=== PATIENT | female | born 1990 | race Hispanic/Latino ===

== ENCOUNTER 2023-04-18 07:20 | Inpatient (IN) | payer OTHER ==
[~2023-04-18] VITALS: Ht 165.1 cm; Wt 121.6 kg
[2023-04-18 07:41] LABS: HEMOGLOBIN 14.2 g/dL (12.0-18.0); MCH 31.5 (27-36); MCV 95.4 fl (81-99); RBC 4.51 M/ul (4.3-5.7); RDW 14.9 (10.5-15.0)
[2023-04-18 07:51] LABS: ALBUMIN 2.7 g/dL (3.4-5.0); ALBUMIN/GLOBULIN RATIO 0.66 (1.1-2.4); ANION GAP 17.7 (7-21); BILIRUBIN, TOTAL 0.3 ng/dL (0.2-1.0); BUN/CREATININE RATIO 16.98 (6.0-28.6); CALCIUM 9.2 mg/dL (8.5-10.1); CREATININE, SERUM 0.53 mg/dL (0.55-1.02); POTASSIUM 3.7 mmol/L (3.5-5.1); PROTEIN, TOTAL 6.8 g/dL (6.4-8.2)
[2023-04-18 08:21] LABS: CREATININE, RANDOM URINE 165.46 mg/dL (NOT ESTABLISHED); PROTEIN/CREATININE RATIO 0.19 mg/mg (0.010-0.107)
[2023-04-18 08:44] VITALS: BP 142/81
[2023-04-18 09:01] LABS: AMPHETAMINES, UR NEGATIVE (NEGATIVE); BARBITURATES, UR NEGATIVE (NEGATIVE); BENZODIAZEPINES, UR NEGATIVE (NEGATIVE); BUPRENORPHINE,UR NEGATIVE (NEGATIVE); COCAINE, UR NEGATIVE (NEGATIVE); MARIJUANA (THC), UR NEGATIVE (NEGATIVE); MDMA, UR NEGATIVE (NEGATIVE); METHADONE, UR NEGATIVE (NEGATIVE); METHAMPHETAMINE, UR NEGATIVE (NEGATIVE); OPIATES, UR NEGATIVE (NEGATIVE); OXYCODONE, UR NEGATIVE (NEGATIVE); PHENCYCLIDINE, UR NEGATIVE (NEGATIVE); TRICYCLIC ANTIDEPRESSANT, UR NEGATIVE (NEGATIVE)
[2023-04-18 10:25] LABS: ABO O; ANTIBODY SCREEN NEGATIVE; RH POSITIVE
[2023-04-18 11:27] LABS: INFLUENZA B NAA NEGATIVE (NEGATIVE); RESPIRATORY SYNCYTIAL VIR NAA NEGATIVE (NEGATIVE)
--- NOTE | 2023-04-18 18:20 | PR ---
[facility] [address] [place], [place] [address] Signed Progress Notes IP Datetime Report Generated by CPN: 04/18/2023 18:20 PROGRESS NOTES: [id number] Impression: Normal Progression of Labor; Reassuring Heart Rate Procedures: Artificial ROM Plan: Continue Present Management Informed Consent Obtain: Vaginal Delivery; Risks, Benefits and Alternatives Discussed VITAL SIGNS: [id number] Vital Signs: Reviewed; Within Normal Limits VS Notable Details: See HPI EXAM: [id number] Dilatation: 3.0 Effacement: 50 Station: -2 Contractions: Irregular MEMBRANES: [id number] Comments: Pt seen and examined. Doing well. No sustained severe range bp. No BORREGO, RUQ pain, or visual changes. Discussed AROM; vertex well applied. AROM easily performed for moderate amount of clear fluid. Mother and baby tolerated well. Discussed anticipated course of labor and delivery. All questions answered FETUS A: [id number] FHR Baseline: 125 Variability: Moderate 6-25bpm Accelerations: 15X15 Decelerations: None FHR Category: Category I Presentation: Vertex Comments on Fetus A: No evidence of metabolic acidosis FETUS B: [id number] Signing Physician: Chula Garcia DO Copies: ~ *Electronically Signed* 04/18/23 660 CHULA GARCIA (SAMEER) DO PATIENT NAME: NANCIE HILL PROGRESS NOTE DATE OF : 89 PHYSICIAN: CHULA GARCIA (JD) DO RPT #: [id number] REPORT IS CONFIDENTIAL AND NOT TO BE RELEASED WITHOUT AUTHORIZATION
--- NOTE | 2023-04-18 22:26 | PR ---
[facility] [facility] [address] [place], [place] [address] Signed Progress Notes IP Datetime Report Generated by CPN: 04/18/2023 22:26 PROGRESS NOTES: [id number] Impression: Normal Progression of Labor; Reassuring Heart Rate Procedures: Sterile Vag Exam Other Procedures: Per RN Plan: Continue Present Management Informed Consent Obtain: Vaginal Delivery; Risks, Benefits and Alternatives Discussed VITAL SIGNS: [id number] Vital Signs: Reviewed; Within Normal Limits VS Notable Details: See HPI EXAM: [id number] Dilatation: 4.0 Effacement: 50 Station: -3 Contractions: Irregular MEMBRANES: [id number] Comments: Pt evaluated. RN performed exam to limit staffing COVID exposure. Noted cervical change and reassuring FHT. No sustained elevated BPs. Continue present management. Consder IUPC if needed. Consider epidural if pt desires as labor progesses. FETUS A: [id number] FHR Baseline: 125 Variability: Moderate 6-25bpm Accelerations: 15X15 Decelerations: None FHR Category: Category I Presentation: Vertex Comments on Fetus A: No evidence of metabolic acidosis FETUS B: [id number] Signing Physician: Chula Garcia DO Copies: ~ *Electronically Signed* 04/18/23 222 CHULA GARCIA (SAMEER) DO PATIENT NAME: NANCIE HILL PROGRESS NOTE DATE OF : 92 PHYSICIAN: CHULA GARCIA (JD) DO RPT #: [id number] REPORT IS CONFIDENTIAL AND NOT TO BE RELEASED WITHOUT AUTHORIZATION
--- NOTE | 2023-04-19 07:43 | PR ---
[facility] [address] [place], [place] [address] Signed Progress Notes IP Datetime Report Generated by CPN: 04/19/2023 07:43 PROGRESS NOTES: [id number] Impression: Normal Progression of Labor; Reassuring Heart Rate Procedures: Intrauterine Pressure Catheter; Scalp Electrode; Sterile Vag Exam Other Procedures: Per RN Plan: Augmentation Informed Consent Obtain: Vaginal Delivery VITAL SIGNS: [id number] Vital Signs: Reviewed; Within Normal Limits VS Notable Details: See HPI EXAM: [id number] Dilatation: 5.0 Effacement: 90 Station: -2 Contractions: Irregular MEMBRANES: [id number] Comments: Pt seen and examined. Slow cervical change. Reviewed 3P's of labor and discussed optimization of passage, passenger, and galindo. IUPC and FSE placed w/out difficulty. Will monitor contractions and augment w/ pitocin per protocol as indicated. Discussed anticipated course of labor and indications for if needed. Epidural on demand if desired. FETUS A: [id number] FHR Baseline: 125 Variability: Moderate 6-25bpm Accelerations: 15X15 Decelerations: None FHR Category: Category I Presentation: Vertex Comments on Fetus A: No evidence of metabolic acidosis FETUS B: [id number] Signing Physician: Chula Palencia DO Copies: ~ *Electronically Signed* 04/19/23 0743 CHULA PALENCIA (SAMEER) DO PATIENT NAME: KANE OTOOLERONALDOPRIMITIVOHANK PROGRESS NOTE DATE OF : 92 PHYSICIAN: CHULA PALENCIA) DO RPT #: [id number] REPORT IS CONFIDENTIAL AND NOT TO BE RELEASED WITHOUT AUTHORIZATION
--- NOTE | 2023-04-19 12:09 | PR ---
[facility] [address] [place], [place] [address] Signed Progress Notes IP Datetime Report Generated by CPN: 04/19/2023 12:09 PROGRESS NOTES: [id number] Impression: Normal Progression of Labor; Reassuring Heart Rate Procedures: Sterile Vag Exam Other Procedures: Per RN Plan: Continue Present Management; Anticipate Vaginal Delivery Informed Consent Obtain: Vaginal Delivery Other Informed Consents: Mag Sulfate / IV labetalol VITAL SIGNS: [id number] Vital Signs: Reviewed; Within Normal Limits VS Notable Details: See HPI EXAM: [id number] Dilatation: 9.5 Effacement: 100 Station: -1 Contractions: Irregular MEMBRANES: [id number] Comments: Pt seen and examined. Reviewed elevated BP but have since improved. Pt w/ severe anxiety and discomfort during epidural. Discussed if any additional sustained elevated BPs would initiate IV labetalol and mag sulfate. Pt understands and agrees. No BORREGO, RUQ pain, or visual changes FETUS A: [id number] FHR Baseline: 125 Variability: Moderate 6-25bpm Accelerations: 15X15 Decelerations: None FHR Category: Category I Presentation: Vertex Comments on Fetus A: No evidence of metabolic acidosis FETUS B: [id number] Signing Physician: Chula Garcia DO Copies: ~ *Electronically Signed* 04/19/23 6533 CHULA GARCIA (SAMEER) DO PATIENT NAME: KANE OTOOLERONALDOPRIMITIVOHANK PROGRESS NOTE DATE OF : 92 PHYSICIAN: CHULA GARCIA (JD) DO RPT #: [id number] REPORT IS CONFIDENTIAL AND NOT TO BE RELEASED WITHOUT AUTHORIZATION
[2023-04-20 05:35] LABS: HEMATOCRIT 39.4 % (35.0-50.0); HEMOGLOBIN 13.1 g/dL (12.0-18.0); MCH 31.8 (27-36); MCHC 33.3 g/dl (30-36); MCV 95.5 fl (81-99); RBC 4.13 M/ul (4.3-5.7); RDW 14.4 (10.5-15.0)
--- NOTE | 2023-04-20 07:19 | PR ---
[facility] [address] [facility] [place], [place] [address] Signed PP Progress Notes Datetime Report Generated by CPN: 04/20/2023 07:19 SUBJECTIVE: [id number] Pain: Within Normal Limits Nausea/Vomiting: Denies Flatus: Yes Bowel Movement: No Vital Signs: [id number] Vital Signs: Reviewed; Within Normal Limits Cardiovascular: Normal Respiratory: Normal Abdomen/Uterus: Normal Lochia: Normal Vulva/Perineum: Not Done Breasts: Not Done CVA Tenderness: Normal Extremities: Normal Incision: Not Applicable Progress: Normal Exam Comments: Fundus firm U-2 nontender IMPRESSION/PLAN/PROCEDURES: [id number] Impression: Normal Progression Plan: Continue Present Management Progress Notes: Pt seen and examined. Doing well. Ambulating, voiding, and tolerating full diet. Pain and lochia minimal. w/ support. No fevers/chills. No cough or other Covid symptoms. BPs improved and good urine output. No concerns. Anticipate d/c home tomorrow. Signing Physician: Chula Garcia DO Copies: ~ *Electronically Signed* 04/20/23 07 CHULA GARCIA (SAMEER) DO PATIENT NAME: NANCIE HILL PROGRESS NOTE DATE OF : 92 PHYSICIAN: CHULA GACRIA (JD) DO RPT #: [id number] REPORT IS CONFIDENTIAL AND NOT TO BE RELEASED WITHOUT AUTHORIZATION
--- NOTE | 2023-04-21 07:54 | PR ---
[facility] [facility] [address] [place], [place] [address] Signed PP Progress Notes Datetime Report Generated by CPNikolas: 04/21/2023 07:54 SUBJECTIVE: [id number] Pain: Within Normal Limits Nausea/Vomiting: Denies Flatus: Yes Bowel Movement: No Vital Signs: [id number] Vital Signs: Reviewed; Within Normal Limits Notable Details: BPs within range Cardiovascular: Normal Respiratory: Normal Abdomen/Uterus: Normal Lochia: Normal Vulva/Perineum: Not Done Breasts: Not Done CVA Tenderness: Normal Extremities: Normal Incision: Not Applicable Progress: Normal Exam Comments: Fundus firm U-2 nontender IMPRESSION/PLAN/PROCEDURES: [id number] Impression: Normal Progression; Induced Hypertension Other Impression: BPs within range Plan: Discharge Progress Notes: Pt seen and examined. Doing well. Ambulating, voiding, and tolerating full diet. Pain and lochia minimal. well. No fevers / chills. No BORREGO, RUQ pain, or visual changes. No sustained elevated BPs. Pt desires d/c home. Planning condoms for pp contraception. Reviewed pp instructions in detail including need to pp BP monitoring and s/sx pp PreE. Reviewed d/c medications (motrin 800mg). All questions answered. F/U for bp check and pt will monitor BPs at home Signing Physician: Chula Garcia DO Copies: ~ *Electronically Signed* 04/21/23 0750 CHULA GARCIA (SAMEER) DO PATIENT NAME: NANCIE HILL PROGRESS NOTE DATE OF : 92 PHYSICIAN: CHULA GARCIA (JD) DO RPT #: [id number] REPORT IS CONFIDENTIAL AND NOT TO BE RELEASED WITHOUT AUTHORIZATION
== END 2023-04-21 14:25 | disposition home or self-care (01) | DRG 805 ==
LOC: FBCO 07:20 → FBC 08:05 → FBCO 16:00 → FBC 04-21 14:25
PROVIDERS: ADMIT Obstetrics & Gynecology; ATTEND Obstetrics & Gynecology
PROC: 10E0XZZ Delivery of Products of Conception, External Approach (ICD-10-PCS; principal; 2023-04-19)
PROC: 0KQM0ZZ Repair Perineum Muscle, Open Approach (ICD-10-PCS; 2023-04-19)
PROC: 10H07YZ Insertion of Other Device into Products of Conception, Via Natural or Artificial Opening (ICD-10-PCS; 2023-04-19)
PROC: 3E0R3BZ Introduction of Anesthetic Agent into Spinal Canal, Percutaneous Approach (ICD-10-PCS; 2023-04-19)
PROC: 00HU33Z Insertion of Infusion Device into Spinal Canal, Percutaneous Approach (ICD-10-PCS; 2023-04-19)
PROC: 10907ZC Drainage of Amniotic Fluid, Therapeutic from Products of Conception, Via Natural or Artificial Opening (ICD-10-PCS; 2023-04-19)
DX: O13.4 Gestational [pregnancy-induced] hypertension without significant proteinuria, complicating childbirth (principal); U07.1 COVID-19; Z37.0 Single live birth; O98.52 Other viral diseases complicating childbirth; O48.0 Post-term pregnancy; O76 Abnormality in fetal heart rate and rhythm complicating labor and delivery; O77.0 Labor and delivery complicated by meconium in amniotic fluid; O70.1 Second degree perineal laceration during delivery; O69.1XX0 Labor and delivery complicated by cord around neck, with compression, not applicable or unspecified; O99.214 Obesity complicating childbirth; Z3A.40 40 weeks gestation of pregnancy
CPT/HCPCS: 01960; 36415; 80053; 82565; 82570; 83615; 84156; 84550; 85027; 86850; 86900; 86901; 87502; A9270; C9803; J2405; J2590; J2795; J3010; J7121; U0002

== ENCOUNTER 2025-05-28 23:55 | Inpatient (IN) | payer OTHER ==
[~2025-05-28] VITALS: Ht 165.1 cm; Wt 117.9 kg
[2025-05-29] MEDS ORDERED: TERBUTALINE SULFATE 1 MG/ML AMP SUB-Q PRN (02:30)
[2025-05-29] MEDS ORDERED: LACTATED RINGER'S 1,000 ML IV SCH (02:30)
[2025-05-29] MEDS ORDERED: LIDOCAINE HCL 1% 30 ML SDV INJ SCH (02:30)
[2025-05-29] MEDS ORDERED: LACTATED RINGER'S 1,000 ML IV PRN (02:30)
[2025-05-29] MEDS ORDERED: CALCIUM CARBONATE 500 MG CHEW PO PRN ×2 (02:30→13:45)
[2025-05-29] MEDS ORDERED: MAGNESIUM HYDROXIDE/AL HYDROX 30 ML CUP PO PRN ×2 (02:30→13:45)
[2025-05-29 02:36] LABS: MCH 29.0 PG (25.6-32.2); MCHC 33.1 g/dL (32.2-35.5); MCV 87.6 fL (79.4-94.8); RBC 3.96 M/uL (3.93-5.22)
[2025-05-29 03:02] VITALS: BP 141/78
[2025-05-29 03:05] LABS: ABO O; ANTIBODY SCREEN NEGATIVE; RH POSITIVE
[2025-05-29] MEDS ORDERED: OXYTOCIN/0.9 % SODIUM CHLORIDE 30 UNITS/500 ML BAG IV SCH (03:45)
[2025-05-29] MEDS ORDERED: ROPIVACAINE 0.2% 200 ML BAG ONE (07:05)
[2025-05-29] MEDS ORDERED: fentaNYL citrate 100 MCG/2 ML VIAL ONE (07:05)
[2025-05-29] MEDS ORDERED: LACTATED RINGER'S 500 ML IV PRN (07:45)
[2025-05-29] MEDS ORDERED: LACTATED RINGER'S 2,000 ML IV ONE (07:45)
[2025-05-29] MEDS ORDERED: ePHEDrine sulfate 5 MG/ML SYRINGE IV PRN (07:45)
[2025-05-29] MEDS ORDERED: ROPIVACAINE 0.2% 200 ML BAG EPIDURAL SCH (07:45)
--- NOTE | 2025-05-29 07:48 | PR ---
[facility] [address] [place], [place] [address] Signed Progress Notes IP Datetime Report Generated by CPN: 05/29/2025 07:47 PROGRESS NOTES: [id number] Impression: Normal Progression of Labor; Reassuring Heart Rate Procedures: Sterile Vag Exam Plan: Continue Present Management; Anticipate Vaginal Delivery VITAL SIGNS: [id number] Vital Signs: Reviewed EXAM: [id number] Dilatation: 4.0 Effacement: 60 Effacement: 75 Effacement: 50 Effacement: 60 Effacement: 60 Station: -2 Station: -2 Station: -2 Station: -3 Station: -3 Contractions: q 3-4 min MEMBRANES: [id number] Comments: Pt seen and examined. epidural kindly placed by anesthesia and pt resting comfortably. 4/60/-2. FHT Cat 1. Mildly elevated BPs overnight; will check preE labs. Reviewed normal platelets on admission. All questions answered FETUS A: [id number] FHR Baseline: 125 Variability: Moderate 6-25bpm Accelerations: 15X15 Decelerations: None FHR Category: Category I Presentation: Vertex Comments on Fetus A: No evidence of metabolic acidosis FETUS B: [id number] Signing Physician: Chula Garcia DO *Electronically Signed* 05/29/25 0747 CHULA GARCIA (SAMEER) DO PATIENT NAME: NANCIE HILL PROGRESS NOTE DATE OF : 92 PHYSICIAN: CHULA GARCIA (JD) DO RPT #: [id number] REPORT IS CONFIDENTIAL AND NOT TO BE RELEASED WITHOUT AUTHORIZATION
[2025-05-29 08:11] LABS: MCH 28.5 PG (25.6-32.2); MCHC 32.2 g/dL (32.2-35.5); MCV 88.6 fL (79.4-94.8); RBC 3.68 M/uL (3.93-5.22)
[2025-05-29 08:14] LABS: PROTEIN, RANDOM URINE 15.0 mg/dL (NOT ESTABLISHED)
[2025-05-29 08:26] LABS: ALT (SGPT) 16.0 U/L (14-59); AST (SGOT) 12.0 U/L (15-37); GLOMERULAR FILTRATION RATE,EST 125.0 mL/min (>60); PROTEIN, TOTAL 6.6 g/dL (6.4-8.2); UREA NITROGEN 7.0 mg/dL (7-18)
[2025-05-29 08:49] LABS: AMPHETAMINES, URINE NEGATIVE (NEGATIVE); BARBITURATES, URINE NEGATIVE (NEGATIVE); BENZODIAZEPINE, URINE NEGATIVE (NEGATIVE); CANNABINOID, URINE NEGATIVE (NEGATIVE); COCAINE, URINE NEGATIVE (NEGATIVE); ECSTASY, URINE NEGATIVE (NEGATIVE); FENTANYL, URINE NEGATIVE (NEGATIVE); METHADONE, URINE NEGATIVE (NEGATIVE); OPIATES, URINE NEGATIVE (NEGATIVE); OXYCODONE, URINE NEGATIVE (NEGATIVE); PHENCYCLIDINE, URINE NEGATIVE (NEGATIVE)
[2025-05-29] MEDS ORDERED: OXYTOCIN/0.9 % SODIUM CHLORIDE 500 ML IV SCH ×2 (10:30→13:45)
--- NOTE | 2025-05-29 13:04 | PR ---
[facility] [address] [facility] [place], [place] [address] Signed Progress Notes IP Datetime Report Generated by CPN: 05/29/2025 13:04 Impression: Normal Progression of Labor; Reassuring Heart Rate Procedures: Sterile Vag Exam Plan: Anticipate Vaginal Delivery Informed Consent Obtain: Vaginal Delivery; Risks, Benefits and Alternatives Discussed Dilatation: 10.0 Effacement: 95 Effacement: 95 Effacement: 85 Effacement: 60 Station: 0 Station: 0 Station: -1 Station: -2 Contractions: q 3-4 min Comments: Pt seen and examined. Doing well but feeling more pressure. Pt now complete. Prepare for . Reviewed adequate pelvis and EFW. All questions answered. Previously reviewed normal PreE labs Variability: Moderate 6-25bpm Decelerations: None FHR Category: Category I Signing Physician: Chula Garcia DO Copies: ~ *Electronically Signed* 05/29/25 1304 CHULA GARCIA (SAMEER) DO PATIENT NAME: NANCIE HILL PROGRESS NOTE DATE OF : 92 PHYSICIAN: CHULA GARCIASAMEER) DO RPT #: [id number] REPORT IS CONFIDENTIAL AND NOT TO BE RELEASED WITHOUT AUTHORIZATION
[2025-05-29] MEDS ORDERED: OXYCODONE HCL 5 MG TAB PO PRN (13:45)
[2025-05-29] MEDS ORDERED: HYDROCORTISONE ACETATE 25 MG SUPP PR PRN (13:45)
[2025-05-29] MEDS ORDERED: IBUPROFEN 600 MG TAB PO PRN (13:45)
[2025-05-29] MEDS ORDERED: HYDROCODONE/ACETA 5/325 TAB PO PRN (13:45)
[2025-05-29] MEDS ORDERED: WITCH HAZEL/GLYCERIN 1 EA PAD TOP PRN (13:45)
[2025-05-29] MEDS ORDERED: ACETAMINOPHEN 325 MG TAB PO PRN (13:45)
[2025-05-29] MEDS ORDERED: OXYCODONE/APAP 5/325 TAB PO PRN (13:45)
[2025-05-29] MEDS ORDERED: MAGNESIUM HYDROXIDE 30 ML UDC PO PRN (13:45)
[2025-05-29] MEDS ORDERED: BENZOCAINE 60 ML AEROSOL TOP PRN (13:45)
[2025-05-29] MEDS ORDERED: SENNOSIDES/DOCUSATE 1 EA TAB PO SCH (21:00)
[2025-05-30 06:17] LABS: MCH 28.5 PG (25.6-32.2); MCHC 32.1 g/dL (32.2-35.5); MCV 88.9 fL (79.4-94.8); RBC 3.68 M/uL (3.93-5.22)
== END 2025-05-30 15:24 | disposition home or self-care (01) | DRG 807 ==
LOC: FBCO 23:55 → FBC 05-29 02:18 → MS 05-29 16:20 → FBC 05-29 16:21
PROVIDERS: ADMIT Obstetrics & Gynecology; ATTEND Obstetrics & Gynecology
PROC: 3E0R3BZ Introduction of Anesthetic Agent into Spinal Canal, Percutaneous Approach (ICD-10-PCS; principal; 2025-05-29)
PROC: 00HU33Z Insertion of Infusion Device into Spinal Canal, Percutaneous Approach (ICD-10-PCS; principal; 2025-05-29)
PROC: 10E0XZZ Delivery of Products of Conception, External Approach (ICD-10-PCS; principal; 2025-05-29)
PROC: 0HQ9XZZ Repair Perineum Skin, External Approach (ICD-10-PCS; principal; 2025-05-29)
DX: O13.4 Gestational [pregnancy-induced] hypertension without significant proteinuria, complicating childbirth (principal); Z37.0 Single live birth; O34.13 Maternal care for benign tumor of corpus uteri, third trimester; Z3A.39 39 weeks gestation of pregnancy; O70.0 First degree perineal laceration during delivery; O76 Abnormality in fetal heart rate and rhythm complicating labor and delivery; O99.214 Obesity complicating childbirth; O65.5 Obstructed labor due to abnormality of maternal pelvic organs; D25.9 Leiomyoma of uterus, unspecified; Z98.890 Other specified postprocedural states; Z79.82 Long term (current) use of aspirin; Z79.899 Other long term (current) drug therapy; Z86.19 Personal history of other infectious and parasitic diseases
CPT/HCPCS: 36415; 80053; 80307; 82570; 84156; 84550; 85027; 86850; 86900; 86901; A9270; J2795; J3010; J7121